=== PATIENT | female | born 1960 | race Caucasian/White ===

== ENCOUNTER 2020-03-02 05:34 | Emergency (ER) | payer MEDICARE, SELFPAY ==
[2020-03-02] VITALS (9 sets, daily range): BP systolic 92–138; BP diastolic 49–93; PULSE 80–105; RESP 15–24; TEMP 37.2; O2SAT 91–98; BMI 35.5
--- NOTE | 2020-03-02 05:53 | CTR_ITS ---
PROCEDURE INFORMATION: Exam: CT Abdomen And Pelvis With Contrast Exam date and time: 03/02/2020 6:43 AM Age: 60 years old Clinical indication: Abdominal pain; Acute; Prior surgery; Surgery date: 6+ months; Surgery type: Hyst; Additional info: Abdominal pain with n/v/d TECHNIQUE: Imaging protocol: Computed tomography of the abdomen and pelvis with intravenous contrast. Radiation optimization: All CT scans at this facility use at least one of these dose optimization techniques: automated exposure control; mA and/or kV adjustment per patient size (includes targeted exams where dose is matched to clinical indication); or iterative reconstruction. Contrast material: OMNI 300; Contrast volume: 95 ml; Contrast route: INTRAVENOUS (IV); COMPARISON: No relevant prior studies available. RADIATION DOSE METRICS: Total DLP (mGy-cm): 1368.34 FINDINGS: Lungs: No acute basilar lung consolidation. Liver: The liver is homogeneous and is not enlarged. Gallbladder and bile ducts: The gallbladder is not distended. No calcified gallstones. There is dilatation of the extrahepatic bile duct, measuring up to 13 mm in diameter. No sign of choledocholithiasis on this exam. Pancreas: No pancreatic mass. No peripancreatic inflammation. No pancreatic ductal dilation. Spleen: The spleen is homogeneous and is not enlarged. Adrenals: There is a 1.9 cm right adrenal nodule with attenuation measurements compatible with a lipid-rich adrenal adenoma. Kidneys and ureters: No hydronephrosis, nephrolithiasis, or renal mass. Stomach and bowel: No bowel obstruction, colitis or diverticulitis. Appendix: The appendix has a normal caliber with no wall thickening. No periappendiceal stranding. Intraperitoneal space: No ascites or pneumoperitoneum. Vasculature: No abdominal aortic aneurysm. No iliac or common femoral artery aneurysm. The mesenteric arteries are patent. The mesenteric, portal, and hepatic veins are patent. Lymph nodes: No pathologically enlarged lymph nodes. Bladder: The urinary better is somewhat distended. No bladder calculus or wall thickening. Reproductive: Prior hysterectomy. Bones/joints: There is a curvature lumbar spine convex to the left associated with multilevel disc degeneration and facet arthropathy. There is an exostosis off the right iliac wing. Soft tissues: There is a lipoma in the right gluteal musculature. CT/CT abdomen pelvis w con* [id number] IMPRESSION: 1. Extrahepatic biliary ductal dilatation. Correlate with the appropriate liver function tests. 2. No bowel obstruction, colitis or diverticulitis. 3. Normal appendix. Radiation Dose CTDIVOL = (mGy): DLP = 1368.34 (mGy-cm)
[2020-03-02] MEDS: ondansetron 2 mg/ML SDV 2 mL 4 MG IVP (06:08)
[2020-03-02] MEDS: HYDROmorphone 1 mg/mL INJ 1 mL IVP (06:08)
[2020-03-02] MEDS: sodium chloride 0.9% 1,000 ML 999 ML IV (06:09)
[2020-03-02 06:20] LABS: Basophils # 0.1 10^3/uL (0.0-0.1); Eosinophils # 0.6 10^3/uL (0.0-0.8); Eosinophils % 6.2 %; Hematocrit 38.5 % (37.0-47.0); Hemoglobin 12.9 g/dL (11.5-15.3); Lymphocytes # 2.4 10^3/uL (0.8-4.8); Lymphocytes % 26.4 %; Mean Corpuscular HGB Conc 33.5 g/dL (30.0-36.0); Mean Corpuscular Hemoglobin 31.1 pg (28.0-34.0); Mean Corpuscular Volume 92.8 fL (81-99); Mean Platelet Volume 8.9 fL (7.4-10.4); Monocytes # 0.8 10^3/uL (0.2-0.9); Monocytes % 8.8 %; Neutrophils # 5.1 10^3/uL (1.8-7.7); Neutrophils % 57.2 %; Nucleated Red Blood Cells % 0 %; Platelet Count 269 10^3/cmm (130-400); Red Blood Count 4.15 10^6/uL (4.1-5.3); Red Cell Distribution Width 12.8 % (12.1-15.1)
--- NOTE | 2020-03-02 06:29 | W.ED.GENADLT ---
Documented by User: Sadia Ellington 03/02/20 06:30 HPI - General Adult General: Chief complaint: General Medical Stated complaint: nausea Time Seen by Provider: 03/02/20 05:53 Source: patient and EMS Mode of arrival: EMS Limitations: no limitations History of Present Illness: HPI narrative: Elaine is a nice 60-year-old female who comes in complaining of abdominal pain, back pain, vomiting and diarrhea. Her symptoms have been present for the past 36 hours and she states that she cannot get any relief of her symptoms. It was, urinary symptoms, vaginal discharge or bleeding. She is not been around anyone else her knowledge. Associated symptoms: Reports nausea and vomiting; Deny chest pain, confusion, diaphoresis, dyspnea, headache(s), malaise, rash, palpitations or syncope Review of Systems Const: Denies: fever(s), chills, body aches, fatigue, malaise or diaphoresis Eyes: Denies: change in vision, blurry vision, blind spots, photophobia, eye discharge or eye redness ENMT: Denies: throat pain, odynophagia, hoarseness, swelling of lips/tongue, oral sores, ear or mastoid pain, ear discharge, change in hearing or nasal discharge Card: Denies: chest pain, palpitations, irregular heart rhythm, edema, lightheadedness, syncope, pre-syncope, dyspnea on exertion or orthopnea Resp: Denies: dyspnea, productive cough, non-productive cough, wheezing, hemoptysis or chest congestion GI: Reports: abdominal pain, nausea, vomiting and diarrhea; Denies: hematemesis, coffee ground emesis, heartburn, constipation, GI cramping, hematochezia or melena : Denies: flank pain, dysuria, urinary frequency, urinary urgency or hematuria Musc: Denies: neck pain, back pain, extremity pain, extremity swelling, joint pain, joint swelling, joint redness, joint warmth or joint stiffness Skin/Breast: Denies: rash, pruritus, erythema, skin tenderness or jaundice Neuro: Denies: headache(s), numbness in extremities, weakness in extremities, sensory changes, lack of coordination, difficulty walking, dizziness, vertigo, confusion, Slurred speech present or seizure-like activity [place]/Lymph: Denies: easy bruising, easy bleeding, petechiae, purpura or enlarged lymph nodes All/Imm: Denies: urticaria, throat swelling, tongue swelling, facial swelling or acute wheezing PFSH ED PFSH: Social History Smoking and tobacco status: current some day smoker Physical Exam Const: COMMON NORMALS: no acute distress, patient oriented x3, no limitations, healthy appearing and well nourished GENERAL APPEARANCE: cooperative, well kempt and well developed HENMT: COMMON NORMALS: normocephalic, atraumatic, external ears normal, EAC's normal and Normal external nose present HEAD & SCALP: normal to inspection, normocephalic and atraumatic FACE & SINUS: normal facial exam and face symmetric NOSE: Normal external nose present and Normal nares present EXTERNAL EAR: Yes external ears normal EXTERNAL AUDITORY CANAL: EAC's normal MOUTH: Normal oral and palatal mucosa present, lip normal and tongue normal Eye: COMMON NORMALS: Equal, round and reactive pupils present and conjunctivae normal GENERAL EYE: appearance normal, both eyes and all related structures ALIGNMENT: Yes alignment normal PERIORBITAL: periorbital findings normal EYELID: eyelids normal CONJUNCTIVA: Yes conjunctivae normal SCLERA: sclerae normal PUPIL: Yes Equal, round and reactive pupils present Neck/C-Spine: COMMON NORMALS: full ROM, no lymphadenopathy, supple, no meningeal signs and no JVD GENERAL: Yes normal visual inspection and Yes trachea midline Chest: COMMONS NORMALS: normal inspection of the chest and normal palpation of entire chest wall Resp: COMMON NORMALS: normal respiratory effort, No retractions and No use of accessory muscles EFFORT & INSPECTION: Yes able to speak in complete sentences and Yes symmetric chest movement AUSCULTATION: no crackles, no rales, no rhonchi and no wheezes Cardio: COMMON NORMALS: no JVD, regular rate, regular rhythm, S1 normal heart sound present and S2 normal heart sound present RATE: regular rate RHYTHM: regular rhythm HEART SOUNDS: S1 normal heart sound present, S2 normal heart sound present, no click, no gallops, no murmurs, no rubs and abnormal split S2 GI: COMMON NORMALS: Soft to palpation and No hepatosplenomegaly present PALPATION: Yes Soft to palpation, Yes Tenderness to palpation present (GI) (Mild diffusely), No Guarding due to palpation present (GI), No Rigid due to palpation, Yes No hepatosplenomegaly present, No Hernia present, No Palpable mass present and No Pulsatile mass present : COMMON NORMALS: Yes no CVA tenderness BLADDER/KIDNEY EXAM: Yes no CVA tenderness EXTERNAL FEMALE EXAM: No Hernia present Back/Pelvis: COMMON NORMALS: no CVA tenderness, thoracic and lumbar spine normal to inspection, no thoracic nor lumbar tenderness and thoraco-lumbar ROM normal Extremity: COMMON NORMALS: normal to inspection, full ROM, capillary refill normal, no joint enlargement, no clubbing, cyanosis or edema and no calf tenderness Neuro: COMMON NORMALS: patient oriented x3, CN's II-XII intact bilaterally, moves all extremities, no focal motor deficits and no sensory deficits noted MENINGEAL SIGNS: Yes no meningeal signs SPEECH: speech normal Psych: COMMON NORMALS: mental status grossly normal, Normal thought process present, cooperative, normal affect, speech normal and activity/motor behavior normal APPEARANCE: Yes well kempt SPEECH: Yes normal speech THOUGHT PROCESS: Normal thought process present Skin: COMMON NORMALS: no rashes or lesions noted, turgor normal, no jaundice, no petechiae and no mottling GENERAL SKIN EXAM: no rashes or lesions noted and turgor normal Course Vital Signs: Vital signs: Vital Signs Temperature 99.0 F 03/02/20 05:43 Pulse Rate 85 03/02/20 12:30 Respiratory Rate 16 03/02/20 12:30 Blood Pressure 138/93 03/02/20 12:30 Pulse Oximetry 97 03/02/20 12:30 [facility] - General Adult Lab Data: Labs: Lab Results 03/02/20 03/02/20 03/02/20 Range/Units 06:05 06:05 06:05 WBC 9.0 (4.0-10.0) 10^3/ uL RBC 4.15 (4.1-5.3) 10^6/u L Hgb 12.9 (11.5-15.3) g/dL Hct 38.5 (37.0-47.0) % MCV 92.8 (81-99) fL MCH 31.1 (28.0-34.0) pg MCHC 33.5 (30.0-36.0) g/dL RDW 12.8 (12.1-15.1) % Plt Count 269 (130-400) 10^3/c mm MPV 8.9 (7.4-10.4) fL Neut % (Auto) 57.2 % Lymph % (Auto) 26.4 % [place] % (Auto) 8.8 % Eos % (Auto) 6.2 % Baso % (Auto) 1.0 % Neut # (Auto) 5.1 (1.8-7.7) 10^3/u L Lymph # (Auto) 2.4 (0.8-4.8) 10^3/u L [place] # (Auto) 0.8 (0.2-0.9) 10^3/u L Eos # (Auto) 0.6 (0.0-0.8) 10^3/u L Baso # (Auto) 0.1 (0.0-0.1) 10^3/u L Nucleated RBC % (a uto) 0 % Nucleated RBCs # 0.0 /100WBC Sodium 128 L (136-145) mmol/L Potassium 4.7 (3.5-5.1) mmol/L Chloride 93 L (98-107) mmol/L Carbon Dioxide 26 (22-29) mmol/L Anion Gap 13.7 (5-19) BUN 10 (8-23) mg/dL Creatinine 0.4 L (0.5-0.9) mg/dL GFR Calculation 162.3 H (90-130) mL/min Glucose 97 (65-115) mg/dL Calculated Osmolal ity 262 L (285-295) mOsm/k g Lactic Acid 1.7 (0.5-2.2) mmol/L Calcium 9.2 (8.5-10.5) mg/dL Magnesium 2.1 (1.7-2.3) mg/dL Total Bilirubin 0.2 (0.15-1.2) mg/dL AST 22 (0-32) U/L ALT 23 (0-33) U/L Alkaline Phosphata se 109 H (35-105) IU/L Total Protein 6.6 (6.6-8.7) g/dL Albumin 4.2 (3.5-5.2) g/dL Globulin 2.4 (1.3-4.6) g/dL Lipase 32 (13-60) U/L Urine Color (Yellow) Urine Appearance (CLEAR) Urine pH (5-7) Ur Specific Gravit y (1.005-1.030) Urine Protein (Negative) Urine Glucose (UA) (Normal) Urine Ketones (Negative) Urine Blood (Negative) Urine Nitrate (Negative) Urine Bilirubin (NEGATIVE) Urine Urobilinogen (Negative) mg/dL Ur Leukocyte Kenzie ase (Negative) Urine RBC (0-2) /hpf Urine WBC (0-5) /hpf Ur Squamous Epith Cells (0-5) Urine Bacteria (NONE) Phenytoin (10-20) ug/mL 03/02/20 03/02/20 Range/Units 06:05 08:03 WBC (4.0-10.0) 10^3/ uL RBC (4.1-5.3) 10^6/u L Hgb (11.5-15.3) g/dL Hct (37.0-47.0) % MCV (81-99) fL MCH (28.0-34.0) pg MCHC (30.0-36.0) g/dL RDW (12.1-15.1) % Plt Count (130-400) 10^3/c mm MPV (7.4-10.4) fL Neut % (Auto) % Lymph % (Auto) % [place] % (Auto) % Eos % (Auto) % Baso % (Auto) % Neut # (Auto) (1.8-7.7) 10^3/u L Lymph # (Auto) (0.8-4.8) 10^3/u L [place] # (Auto) (0.2-0.9) 10^3/u L Eos # (Auto) (0.0-0.8) 10^3/u L Baso # (Auto) (0.0-0.1) 10^3/u L Nucleated RBC % (a uto) % Nucleated RBCs # /100WBC Sodium (136-145) mmol/L Potassium (3.5-5.1) mmol/L Chloride (98-107) mmol/L Carbon Dioxide (22-29) mmol/L Anion Gap (5-19) BUN (8-23) mg/dL Creatinine (0.5-0.9) mg/dL GFR Calculation (90-130) mL/min Glucose (65-115) mg/dL Calculated Osmolal ity (285-295) mOsm/k g Lactic Acid (0.5-2.2) mmol/L Calcium (8.5-10.5) mg/dL Magnesium (1.7-2.3) mg/dL Total Bilirubin (0.15-1.2) mg/dL AST (0-32) U/L ALT (0-33) U/L Alkaline Phosphata se (35-105) IU/L Total Protein (6.6-8.7) g/dL Albumin (3.5-5.2) g/dL Globulin (1.3-4.6) g/dL Lipase (13-60) U/L Urine Color Yellow (Yellow) Urine Appearance Clear (CLEAR) Urine pH 7 (5-7) Ur Specific Gravit y 1.005 (1.005-1.030) Urine Protein Neg (Negative) Urine Glucose (UA) Norm (Normal) Urine Ketones Negative (Negative) Urine Blood Neg (Negative) Urine Nitrate Negative (Negative) Urine Bilirubin Neg (NEGATIVE) Urine Urobilinogen Norm (Negative) mg/dL Ur Leukocyte Kenzie ase Negative (Negative) Urine RBC None (0-2) /hpf Urine WBC None (0-5) /hpf Ur Squamous Epith Cells 0-4 H (0-5) Urine Bacteria Trace (NONE) Phenytoin 2.9 L (10-20) ug/mL Discharge Plan Discharge Patient Disposition: Home, Self-Care Clinical Impression: Nausea & vomiting Condition: Stable Prescriptions: New Zofran 4 mg tablet 4 mg PO Q6H PRN (Reason: nausea and vomiting) Qty: 30 RF: 0 No Action furosemide 40 mg tablet 20 - 40 mg PO DAILY PRN (Reason: Edema) RF: 0 oxybutynin chloride 15 mg tablet extended release 24hr 15 mg PO DAILY RF: 0 clonazepam 1 mg tablet 0.5 - 1 mg PO TID PRN (Reason: unknown) RF: 0 olanzapine 10 mg tablet 10 mg PO QPM RF: 0 potassium chloride 10 mEq tablet extended release 10 meq PO DAILY RF: 0 phenytoin sodium extended 100 mg capsule 100 mg PO TID RF: 0 divalproex 500 mg tablet,delayed release (DR/EC) See Rx Instructions .ROUTE .COMPLEX RF: 0 hydrocodone-acetaminophen 10-325 mg tablet 1 - 2 tab PO Q4H PRN (Reason: Pain) RF: 0 trazodone 100 mg tablet 100 - 200 mg PO BEDTIME PRN (Reason: Sleep) RF: 0 mirtazapine 30 mg tablet 30 mg PO QPM RF: 0 venlafaxine 50 mg tablet 50 mg PO BID RF: 0 olmesartan 40 mg tablet 40 mg PO DAILY RF: 0 Thermotabs 287-180-15 mg Tablet 1 tab PO TID RF: 0 Vitamin C 1 tab PO DAILY RF: 0 Vitamin D3 1 tab PO DAILY RF: 0 vitamin E 1 cap PO DAILY RF: 0 Discharge Orders: Discharge Order (Routine); Ordered 03/02/20 Ordered By: Xu Pablo Discharge Diet: Clear Liquid Discharge Activity: Increase activity as tolerated Patient Instructions: Clear Liquid Diet (ED), Acute Nausea and Vomiting (ED), Abdominal Pain (ED) Activity Restrictions/Additional Instructions: Resume your normal p.o. medications. Follow-up with primary care doctor in 2 to 3 days return to the emergency room for worsening problems Discharge Date/Time: 03/02/20 12:30 Sign Out Sign Out Data: Patient Sign Out occurred on 03/02/20 at 07:29. Patient's care was discussed, and care was transferred from to Xu Pablo DO. Coding Level of Care Code ED Endocrinology Nurse for Chg Fwd Exam Comprehensive Documented by User: Xu Pablo DO 03/05/20 06:29 HPI - General Adult General: Chief complaint: General Medical Stated complaint: nausea Time Seen by Provider: 03/02/20 05:53 History of Present Illness: HPI narrative: 60-year-old female who went and examined the patient she self admits she has mental health issues she is upset because we have given not all of her regular oral medications this morning she still complaining of severe abdominal pain she is not had any nausea vomiting since arrival. Associated symptoms: Reports nausea and vomiting; Deny chest pain, dyspnea or rash Review of Systems Card: Denies: chest pain, edema, dyspnea on exertion or orthopnea Resp: Denies: dyspnea, productive cough or non-productive cough GI: Reports: abdominal pain, nausea, vomiting and bloating; Denies: hematemesis, coffee ground emesis, diarrhea, constipation, hematochezia or melena : Denies: flank pain, difficulty voiding, dysuria, urinary frequency or urinary urgency Skin/Breast: Denies: rash or pruritus PFSH ED PFSH: Social History Smoking and tobacco status: current some day smoker Physical Exam Const: ORIENTATION/CONSCIOUSNESS: Yes awake, Yes oriented to person, Yes oriented to place and Yes oriented to time Eye: COMMON NORMALS: Equal, round and reactive pupils present, EOMs intact bilaterally, conjunctivae normal and no scleral icterus CONJUNCTIVA: Yes conjunctivae normal PUPIL: Yes Equal, round and reactive pupils present Neck/C-Spine: COMMON NORMALS: full ROM, no lymphadenopathy, supple and no JVD Lymph: LYMPHATIC: no lymphadenopathy noted and no lymphedema noted Resp: COMMON NORMALS: normal respiratory effort, No retractions, No use of accessory muscles and clear to auscultation bilaterally AUSCULTATION: clear to auscultation bilaterally Cardio: COMMON NORMALS: no JVD, regular rate, regular rhythm and No murmurs present (Cardio) RATE: regular rate RHYTHM: regular rhythm GI: COMMON NORMALS: No hepatosplenomegaly present AUSCULTATION: Yes normoactive bowel sounds PALPATION: Yes Tenderness to palpation present (GI) (diffuse tenderness), No Guarding due to palpation present (GI) and Yes No hepatosplenomegaly present Extremity: COMMON NORMALS: normal to inspection, capillary refill normal, no clubbing, cyanosis or edema, no calf tenderness and no pedal edema Neuro: SENSORIUM/ORIENTATION: Yes oriented to person, Yes oriented to place and Yes oriented to time Skin: COMMON NORMALS: no rashes or lesions noted GENERAL SKIN EXAM: no rashes or lesions noted Course Vital Signs: Vital signs: Vital Signs Temperature 99.0 F 03/02/20 05:43 Pulse Rate 85 03/02/20 12:30 Respiratory Rate 16 03/02/20 12:30 Blood Pressure 138/93 03/02/20 12:30 Pulse Oximetry 97 03/02/20 12:30 MDM - General Adult MDM Narrative: Medical decision making narrative: My initial exam patient continued with severe tenderness we observed over time give her p.o. fluid challenge through IV fluids on repeat exam she is feeling much better she initially upset because we had not given her her oral medications I discussed with her that I wanted to hold them until we are done with our work-up. At this time is no significant findings she has a gastroenteritis with persistent nausea and vomiting her symptoms have mostly resolved she is feeling better and able to take p.o. fluids working to go ahead and discharge her home with [facility] advised her she can resume her regular home medications at this time after discussion with the nurse present patient was satisfied with our evaluation and comfortable returning home. She was encouraged to return if she has any worsening or recurrence of symptoms. Lab Data: Labs: Lab Results 03/02/20 03/02/20 03/02/20 Range/Units 06:05 06:05 06:05 WBC 9.0 (4.0-10.0) 10^3/ uL RBC 4.15 (4.1-5.3) 10^6/u L Hgb 12.9 (11.5-15.3) g/dL Hct 38.5 (37.0-47.0) % MCV 92.8 (81-99) fL MCH 31.1 (28.0-34.0) pg MCHC 33.5 (30.0-36.0) g/dL RDW 12.8 (12.1-15.1) % Plt Count 269 (130-400) 10^3/c mm MPV 8.9 (7.4-10.4) fL Neut % (Auto) 57.2 % Lymph % (Auto) 26.4 % [place] % (Auto) 8.8 % Eos % (Auto) 6.2 % Baso % (Auto) 1.0 % Neut # (Auto) 5.1 (1.8-7.7) 10^3/u L Lymph # (Auto) 2.4 (0.8-4.8) 10^3/u L [place] # (Auto) 0.8 (0.2-0.9) 10^3/u L Eos # (Auto) 0.6 (0.0-0.8) 10^3/u L Baso # (Auto) 0.1 (0.0-0.1) 10^3/u L Nucleated RBC % (a uto) 0 % Nucleated RBCs # 0.0 /100WBC Sodium 128 L (136-145) mmol/L Potassium 4.7 (3.5-5.1) mmol/L Chloride 93 L (98-107) mmol/L Carbon Dioxide 26 (22-29) mmol/L Anion Gap 13.7 (5-19) BUN 10 (8-23) mg/dL Creatinine 0.4 L (0.5-0.9) mg/dL GFR Calculation 162.3 H (90-130) mL/min Glucose 97 (65-115) mg/dL Calculated Osmolal ity 262 L (285-295) mOsm/k g Lactic Acid 1.7 (0.5-2.2) mmol/L Calcium 9.2 (8.5-10.5) mg/dL Magnesium 2.1 (1.7-2.3) mg/dL Total Bilirubin 0.2 (0.15-1.2) mg/dL AST 22 (0-32) U/L ALT 23 (0-33) U/L Alkaline Phosphata se 109 H (35-105) IU/L Total Protein 6.6 (6.6-8.7) g/dL Albumin 4.2 (3.5-5.2) g/dL Globulin 2.4 (1.3-4.6) g/dL Lipase 32 (13-60) U/L Urine Color (Yellow) Urine Appearance (CLEAR) Urine pH (5-7) Ur Specific Gravit y (1.005-1.030) Urine Protein (Negative) Urine Glucose (UA) (Normal) Urine Ketones (Negative) Urine Blood (Negative) Urine Nitrate (Negative) Urine Bilirubin (NEGATIVE) Urine Urobilinogen (Negative) mg/dL Ur Leukocyte Kenzie ase (Negative) Urine RBC (0-2) /hpf Urine WBC (0-5) /hpf Ur Squamous Epith Cells (0-5) Urine Bacteria (NONE) Phenytoin (10-20) ug/mL 03/02/20 03/02/20 Range/Units 06:05 08:03 WBC (4.0-10.0) 10^3/ uL RBC (4.1-5.3) 10^6/u L Hgb (11.5-15.3) g/dL Hct (37.0-47.0) % MCV (81-99) fL MCH (28.0-34.0) pg MCHC (30.0-36.0) g/dL RDW (12.1-15.1) % Plt Count (130-400) 10^3/c mm MPV (7.4-10.4) fL Neut % (Auto) % Lymph % (Auto) % [place] % (Auto) % Eos % (Auto) % Baso % (Auto) % Neut # (Auto) (1.8-7.7) 10^3/u L Lymph # (Auto) (0.8-4.8) 10^3/u L [place] # (Auto) (0.2-0.9) 10^3/u L Eos # (Auto) (0.0-0.8) 10^3/u L Baso # (Auto) (0.0-0.1) 10^3/u L Nucleated RBC % (a uto) % Nucleated RBCs # /100WBC Sodium (136-145) mmol/L Potassium (3.5-5.1) mmol/L Chloride (98-107) mmol/L Carbon Dioxide (22-29) mmol/L Anion Gap (5-19) BUN (8-23) mg/dL Creatinine (0.5-0.9) mg/dL GFR Calculation (90-130) mL/min Glucose (65-115) mg/dL Calculated Osmolal ity (285-295) mOsm/k g Lactic Acid (0.5-2.2) mmol/L Calcium (8.5-10.5) mg/dL Magnesium (1.7-2.3) mg/dL Total Bilirubin (0.15-1.2) mg/dL AST (0-32) U/L ALT (0-33) U/L Alkaline Phosphata se (35-105) IU/L Total Protein (6.6-8.7) g/dL Albumin (3.5-5.2) g/dL Globulin (1.3-4.6) g/dL Lipase (13-60) U/L Urine Color Yellow (Yellow) Urine Appearance Clear (CLEAR) Urine pH 7 (5-7) Ur Specific Gravit y 1.005 (1.005-1.030) Urine Protein Neg (Negative) Urine Glucose (UA) Norm (Normal) Urine Ketones Negative (Negative) Urine Blood Neg (Negative) Urine Nitrate Negative (Negative) Urine Bilirubin Neg (NEGATIVE) Urine Urobilinogen Norm (Negative) mg/dL Ur Leukocyte Kenzie ase Negative (Negative) Urine RBC None (0-2) /hpf Urine WBC None (0-5) /hpf Ur Squamous Epith Cells 0-4 H (0-5) Urine Bacteria Trace (NONE) Phenytoin 2.9 L (10-20) ug/mL Discharge Plan Discharge Patient Disposition: Home, Self-Care Clinical Impression: Nausea & vomiting Condition: Stable Prescriptions: New Zofran 4 mg tablet 4 mg PO Q6H PRN (Reason: nausea and vomiting) Qty: 30 RF: 0 No Action furosemide 40 mg tablet 20 - 40 mg PO DAILY PRN (Reason: Edema) RF: 0 oxybutynin chloride 15 mg tablet extended release 24hr 15 mg PO DAILY RF: 0 clonazepam 1 mg tablet 0.5 - 1 mg PO TID PRN (Reason: unknown) RF: 0 olanzapine 10 mg tablet 10 mg PO QPM RF: 0 potassium chloride 10 mEq tablet extended release 10 meq PO DAILY RF: 0 phenytoin sodium extended 100 mg capsule 100 mg PO TID RF: 0 divalproex 500 mg tablet,delayed release (DR/EC) See Rx Instructions .ROUTE .COMPLEX RF: 0 hydrocodone-acetaminophen 10-325 mg tablet 1 - 2 tab PO Q4H PRN (Reason: Pain) RF: 0 trazodone 100 mg tablet 100 - 200 mg PO BEDTIME PRN (Reason: Sleep) RF: 0 mirtazapine 30 mg tablet 30 mg PO QPM RF: 0 venlafaxine 50 mg tablet 50 mg PO BID RF: 0 olmesartan 40 mg tablet 40 mg PO DAILY RF: 0 Thermotabs 287-180-15 mg Tablet 1 tab PO TID RF: 0 Vitamin C 1 tab PO DAILY RF: 0 Vitamin D3 1 tab PO DAILY RF: 0 vitamin E 1 cap PO DAILY RF: 0 Discharge Orders: Discharge Order (Routine); Ordered 03/02/20 Ordered By: Xu Pablo Discharge Diet: Clear Liquid Discharge Activity: Increase activity as tolerated Patient Instructions: Clear Liquid Diet (ED), Acute Nausea and Vomiting (ED), Abdominal Pain (ED) Activity Restrictions/Additional Instructions: Resume your normal p.o. medications. Follow-up with primary care doctor in 2 to 3 days return to the emergency room for worsening problems Discharge Date/Time: 03/02/20 12:30 Sign Out Sign Out Data: Patient Sign Out occurred on 03/02/20 at 07:29. Patient's care was discussed, and care was transferred from to Xu Pablo DO. Coding Level of Care Code ED Endocrinology Nurse for Chg Fwd Exam Comprehensive
[2020-03-02 06:34] LABS: Alanine Aminotransferase 23 U/L (0-33); Albumin Level 4.2 g/dL (3.5-5.2); Alkaline Phosphatase 109 IU/L (35-105); Anion Gap 13.7 (5-19); Aspartate Amino Transferase 22 U/L (0-32); Blood Urea Nitrogen 10 mg/dL (8-23); Calcium 9.2 mg/dL (8.5-10.5); Carbon Dioxide 26 mmol/L (22-29); Chloride 93 mmol/L (98-107); Globulin 2.4 g/dL (1.3-4.6); Glomerular Filtration Rate 162.3 mL/min (90-130); Glucose 97 mg/dL (65-115); Lipase 32 U/L (13-60); Magnesium 2.1 mg/dL (1.7-2.3); Osmolality Calculated 262 mOsm/kg (285-295); Potassium 4.7 mmol/L (3.5-5.1); Sodium 128 mmol/L (136-145); Total Bilirubin 0.2 mg/dL (0.15-1.2); Total Protein 6.6 g/dL (6.6-8.7)
[2020-03-02 06:35] LABS: Lactic Sepsis W/Reflex 1.7 mmol/L (0.5-2.2)
[2020-03-02] MEDS: iohexol 300 mg/mL 100 mL Btl IV (07:06)
[2020-03-02 08:43] LABS: Add Urine Culture? No; Bacteria Urine TRACE; Bilirubin Urine Neg (NEGATIVE); Blood Urine Neg (Negative); Glucose Urine UA Norm (Normal); Ketones Urine Negative (Negative); Leukocyte Esterase Urine Negative (Negative); Nitrate Urine Negative (Negative); Protein Urine Neg (Negative); Specific Gravity, Urine 1.005 (1.005-1.030); Squamous Epithelial Cell Urine 0-4 (0-5); Urine Appearance Clear (CLEAR); Urine Color Yellow (Yellow); Urobilinogen Urine Norm (Negative); pH Urine 7 (5-7)
[2020-03-02] MEDS: morphine 4 mg/mL SDV 1 mL IVP (10:05)
[2020-03-02] MEDS: LORazepam 2 mg/mL INJ 1 mL 1 MG IVP (10:21)
[2020-03-02 10:54] LABS: Phenytoin Dilantin 2.9 ug/mL (10-20)
== END 2020-03-02 12:30 | disposition home or self-care (01) ==
PROVIDERS: Emergency Medicine; Emergency Provider Family Medicine
DX: R11.2 Nausea with vomiting, unspecified (principal); F17.210 Nicotine dependence, cigarettes, uncomplicated
CPT/HCPCS: 12345; 74177; 80053; 80185; 81001; 83605; 83690; 83735; 85025; 96361; 96374; 96375; 99284; J1170; J2060; J2270; J2405; J7030; Q9967

== ENCOUNTER 2020-10-11 14:34 | Outpatient (CLI) | payer MEDICARE, SELFPAY ==
--- NOTE | 2020-10-11 14:47 | XR_ITS ---
WS: [id number] Exam: XR chest 2V* [id number] Date/Time of Exam: 10/11/2020 2:47 PM Reason For Exam: copd Comparison 07/30/2018. The lungs are fully expanded and clear. Normal cardiomediastinal structures and bony elements. No ple ural effusions. XR/XR chest 2V* [id number] IMPRESSION: 1. No acute cardiopulmonary finding.
--- NOTE | 2020-10-11 14:48 | XR_ITS ---
WS: [id number] Exam: XR knee RT 3V* [id number] Date/Time of Exam: 10/11/2020 2:48 PM Reason For Exam: KNEE PAIN Comparison 11/18/2018. A total knee prosthesis is in place in satisfactory position. No fracture or loosening. The patellar component is incompletely visualized due to radiographic projection. No joint effusion is noted. Norm al soft tissues. XR/XR knee RT 3V* [id number] IMPRESSION: 1. Total knee replacement remaining in satisfactory position without complicati on. 2. The patellar component is partially obscured for evaluation due to radiograp hic projection. A sunrise view or repeat lateral view could be helpful if thoug ht to be clinically warranted.
--- NOTE | 2020-10-11 14:48 | XR_ITS ---
WS: [id number] Exam: XR hip LT 2-3V wo/w pel* [id number] Date/Time of Exam: 10/11/2020 2:48 PM Reason For Exam: HIP PAIN No fracture or dislocation. Moderate degenerative change of the joint compartment. Normal soft tissue s. XR/XR hip LT 2-3V wo/w pel* [id number] IMPRESSION: 1. No fracture identified. 2. Moderate degenerative change. 3. Marginal osteophyte formation along the lateral margin of the acetabulum. Th is might predispose the patient to femoral acetabular impingement however this should be correlated with clinical symptoms.
== END 2020-10-11 14:35 | disposition home or self-care (01) ==
LOC: RAD 14:45
PROVIDERS: PCP Nurse Practitioner Family; Visit Provider Nurse Practitioner Family
DX: M25.552 Pain in left hip (principal); M25.561 Pain in right knee; J44.9 Chronic obstructive pulmonary disease, unspecified; Z96.651 Presence of right artificial knee joint
CPT/HCPCS: 71046; 73502; 73562

== ENCOUNTER 2020-11-06 15:35 | Emergency (ER) | payer MEDICARE, SELFPAY ==
[2020-11-06 15:42] VITALS: BP 155/91; PULSE 109; RESP 24; TEMP 37.7; O2SAT 99; BMI 35.5
--- NOTE | 2020-11-06 16:29 | CTR_ITS ---
PROCEDURE INFORMATION: Exam: CT Lumbar Spine Without Contrast Exam date and time: 11/06/2020 4:37 PM Age: 60 years old Clinical indication: Injury or trauma; Blunt trauma (contusions or hematomas); Patient HX: Fall, low back pain TECHNIQUE: Imaging protocol: Computed tomography images of the lumbar spine without contrast. Radiation optimization: All CT scans at this facility use at least one of these dose optimization techniques: automated exposure control; mA and/or kV adjustment per patient size (includes targeted exams where dose is matched to clinical indication); or iterative reconstruction. COMPARISON: No relevant prior studies available. RADIATION DOSE METRICS: Total DLP (mGy-cm): 2432.55 FINDINGS: Vertebrae: Moderate to severe levoscoliosis. The normal lordosis is generally maintained. No compression deformity or subluxation. No other fracture. Discs/Spinal canal/Neural foramina: Disc bulges noted, greatest at the L3-L4 level, measuring 5 mm. Xaec-de-[id number] facet arthrosis. Geac-lv-kkhcpqjp foraminal stenosis at L2-L3 and below. No severe canal stenosis. Soft tissues: A 1.4 cm right adrenal nodule measures -17 Hounsfield units in density consistent with a benign lipid rich adrenal adenoma. A 1.6 cm left adrenal nodule measures 18 Hounsfield units, consistent with a benign lipid rich adrenal adenoma. CT/CT lumbar spine wo con* [id number] IMPRESSION: No acute osseous abnormality of the lumbar spine. Radiation Dose CTDIVOL = (mGy): DLP = 2432.55 (mGy-cm)
--- NOTE | 2020-11-06 16:29 | CTR_ITS ---
PROCEDURE INFORMATION: Exam: CT Pelvis Without Contrast; Skeletal Exam date and time: 11/06/2020 4:37 PM Age: 60 years old Clinical indication: Injury or trauma; Blunt trauma (contusions or hematomas); Left; Patient HX: Fall-low back pain, lt hip pain; Additional info: Pain after fall TECHNIQUE: Imaging protocol: Computed tomography images of the pelvis without contrast. Exam focused on the skeletal structures. Radiation optimization: All CT scans at this facility use at least one of these dose optimization techniques: automated exposure control; mA and/or kV adjustment per patient size (includes targeted exams where dose is matched to clinical indication); or iterative reconstruction. COMPARISON: CT abdomen pelvis w con* [id number] 03/02/2020 6:49 AM RADIATION DOSE METRICS: Total DLP (mGy-cm): 978.51 FINDINGS: Stomach and bowel: Few scattered diverticula in the visualized colon. Bones/joints: Exostosis again noted of the right iliac wing . No acute osseous abnormality. Ktho-bb-[id number] degenerative changes of the hips. Soft tissues: Lipoma in the right gluteus musculature. CT/CT pelvis wo con [id number] IMPRESSION: No acute osseous abnormality of the pelvis. Radiation Dose CTDIVOL = (mGy): DLP = 978.51 (mGy-cm)
--- NOTE | 2020-11-06 16:33 | ED_ITS ---
HPI - Back Pain/Injury General: Chief Complaint: Back Pain/Injury Stated Complaint: HIP AND BACK PAIN Time Seen by Provider: 11/06/20 15:56 History of Present Illness: HPI Narrative: 60-year-old female comes in complaining of severe left sided back pain radiating into her upper thigh and groin. It does not go down to her leg. About 3 weeks ago she fell she was seen after that had plain films done of the hip and pelvis and lumbar spine there is no acute finding. She was seen today at pain clinic was in severe pain sent over to the Ortho clinic they referred her to the ER because she was in pain and they were not able even really properly examine her. She denies any fecal incontinence or any urinary retention. She has been taking hydrocodone. She denies any other trauma since the fall in late September. MD elicited complaint: back pain and back injury Pertinent past history: recent trauma (3 weeks ago.) Onset (ago): day(s) Timing: constant Severity: severe Similar Symptoms Previously: Yes Quality: spasming Radiation: groin Exacerbating factors: none Relieving factors: none Context: fall Associated symptoms: Deny abdominal pain, arthralgias, chills, change in bowel habits, difficulty walking, dysuria, fatigue, fecal incontinence, fever(s), hematuria, myalgias, nausea, numbness, syncope, tingling/numbness/burning, urinary frequency, urinary urgency, vomiting or weakness Review of Systems Const: Denies: fever(s), chills or fatigue ENMT: Denies: throat pain, ear or mastoid pain, nasal discharge or nasal congestion Card: Denies: syncope Resp: Denies: dyspnea, productive cough or non-productive cough GI: Denies: abdominal pain, nausea, vomiting, fecal incontinence or change in bowel habits : Denies: dysuria, urinary urgency or hematuria Skin/Breast: Denies: rash or pruritus Neuro: Denies: difficulty walking PFSH ED PFSH: Social History Smoking and tobacco status: current some day smoker Physical Exam Const: COMMON NORMALS: no acute distress GENERAL APPEARANCE: cooperative and comfortable ORIENTATION/CONSCIOUSNESS: Yes awake, Yes oriented to person, Yes oriented to place and Yes oriented to time HENMT: COMMON NORMALS: normocephalic, atraumatic and hearing grossly normal bilaterally HEAD & SCALP: normocephalic and atraumatic Neck/C-Spine: COMMON NORMALS: no JVD Resp: COMMON NORMALS: normal respiratory effort, No retractions, No use of accessory muscles and clear to auscultation bilaterally AUSCULTATION: clear to auscultation bilaterally Cardio: COMMON NORMALS: no JVD, regular rate, regular rhythm and No murmurs present (Cardio) RATE: regular rate RHYTHM: regular rhythm GI: COMMON NORMALS: Soft to palpation and No hepatosplenomegaly present AUSCULTATION: Yes normoactive bowel sounds PALPATION: Yes Soft to palpation, No Tenderness to palpation present (GI), No Guarding due to palpation present (GI) and Yes No hepatosplenomegaly present Extremity: COMMON NORMALS: normal to inspection, capillary refill normal, no clubbing, cyanosis or edema, no calf tenderness and no pedal edema Neuro: SENSORIUM/ORIENTATION: Yes oriented to person, Yes oriented to place and Yes oriented to time Skin: COMMON NORMALS: no rashes or lesions noted GENERAL SKIN EXAM: no rashes or lesions noted Course Vital Signs: Vital signs: Vital Signs Temperature 99.9 F H 11/06/20 15:42 Pulse Rate 77 11/06/20 18:05 Respiratory Rate 18 11/06/20 18:05 Blood Pressure 139/94 11/06/20 18:05 Pulse Oximetry 96 11/06/20 18:05 MDM - Back Pain/Injury MDM Narrative: Medical decision making narrative: CT is negative for occult fracture. No evidence of stenosis or significant foraminal impingement. Go[place] discharge home she is doing much better with the pain medications given here d ischarge home and as per medicines below have her follow-up with primary care may need more advanced imaging such as MRI of the lumbar spine. Lab Data: Labs: Lab Results 11/06/20 11/06/20 11/06/20 Range/Units 16:27 16:27 17:45 WBC 6.7 (4.0-10.0) 10^3/ uL RBC 3.95 L (4.1-5.3) 10^6/u L Hgb 12.1 (11.5-15.3) g/dL Hct 35.4 L (37.0-47.0) % MCV 89.6 (81-99) fL MCH 30.6 (28.0-34.0) pg MCHC 34.2 (30.0-36.0) g/dL RDW 12.5 (12.1-15.1) % Plt Count 239 (130-400) 10^3/c mm MPV 9.6 (7.4-10.4) fL Neut % (Auto) 44.6 % Lymph % (Auto) 32.9 % Appling % (Auto) 14.0 % Eos % (Auto) 7.1 % Baso % (Auto) 1.1 % Neut # (Auto) 2.98 (1.8-7.7) 10^3/u L Lymph # (Auto) 2.2 (0.8-4.8) 10^3/u L Appling # (Auto) 0.9 (0.2-0.9) 10^3/u L Eos # (Auto) 0.5 (0.0-0.8) 10^3/u L Baso # (Auto) 0.1 (0.0-0.1) 10^3/u L Nucleated RBC % (a uto) 0 % Nucleated RBCs # 0.0 /100WBC Sodium 129 L (136-145) mmol/L Potassium 4.7 (3.5-5.1) mmol/L Chloride 94 L (98-107) mmol/L Carbon Dioxide 25 (22-29) mmol/L Anion Gap 14.7 (5-19) BUN 6 L (8-23) mg/dL Creatinine 0.4 L (0.5-0.9) mg/dL GFR Calculation 162.3 H (90-130) mL/min Glucose 95 (65-115) mg/dL Calculated Osmolal ity 265 L (285-295) mOsm/k g Calcium 9.4 (8.5-10.5) mg/dL Urine Color Yellow (Yellow) Urine Appearance Sl hazy (CLEAR) Urine pH 7 (5-7) Ur Specific Gravit y 1.005 (1.005-1.030) Urine Protein Neg (Negative) Urine Glucose (UA) Norm (Normal) Urine Ketones Negative (Negative) Urine Blood 2+ H (Negative) Urine Nitrate Positive H (Negative) Urine Bilirubin Neg (Negative) Urine Urobilinogen Norm (Negative) mg/dL Ur Leukocyte Kenzie ase 2+ H (Negative) Urine RBC 0-4 H (0-2) /hpf Urine WBC >100 H (0-5) /hpf Ur Squamous Epith Cells 0-4 H (0-5) /hpf Amorphous Sediment Not Reportable Urine Bacteria 3+ H (NONE) /hpf Discharge Plan Discharge Patient Disposition: Home Clinical Impression: Lumbar radiculopathy, Strain of lumbar region Condition: Stable Prescriptions: New diclofenac sodium 75 mg tablet,delayed release (DR/EC) 75 mg PO Q12H PRN (Reason: pain) Qty: 20 RF: 0 tizanidine 4 mg capsule 4 mg PO Q6H PRN (Reason: muscle spasticity) Qty: 30 RF: 0 Medrol (Cuong) 4 mg tablets,dose pack See Rx Instructions .ROUTE .COMPLEX Qty: 21 RF: 0 No Action divalproex 500 mg tablet extended release 24 hr 500 mg PO QAM RF: 0 Afrin (oxymetazoline) See Rx Instructions .ROUTE .COMPLEX RF: 0 Zyrtec 10 mg Tablet 10 mg PO DAILY RF: 0 levothyroxine 25 mcg Tablet See Rx Instructions .ROUTE .COMPLEX RF: 0 Stool Softener 100 mg Capsule 100 mg PO DAILY PRN (Reason: Constipation) RF: 0 oxybutynin chloride 15 mg tablet extended release 24hr 15 mg PO QAM RF: 0 clonazepam 1 mg tablet See Rx Instructions .ROUTE .COMPLEX PRN (Reason: unknown) RF: 0 olanzapine 10 mg tablet 10 mg PO QPM RF: 0 potassium chloride 10 mEq tablet extended release 10 meq PO QAM RF: 0 phenytoin sodium extended 100 mg capsule 100 mg PO TID RF: 0 divalproex 500 mg tablet,delayed release (DR/EC) 1,000 mg PO QPM RF: 0 hydrocodone-acetaminophen 10-325 mg tablet 1 - 2 tab PO Q4H MDD 6 tabs per day PRN (Reason: Pain) RF: 0 trazodone 100 mg tablet 100 - 200 mg PO BEDTIME PRN (Reason: Sleep) RF: 0 mirtazapine 30 mg tablet 30 mg PO QPM RF: 0 venlafaxine 50 mg tablet 50 mg PO BID RF: 0 olmesartan 40 mg tablet 40 mg PO QAM RF: 0 Thermotabs 287-180-15 mg Tablet 1 tab PO BID RF: 0 Vitamin C 1 tab PO DAILY@12 RF: 0 Vitamin D3 1 tab PO DAILY@12 RF: 0 vitamin E 1 cap PO DAILY@12 RF: 0 Discharge Orders: Discharge ED (Routine); Ordered 11/06/20 Ordered By: Xu Pablo Referrals: Lila Lechuga APN [Primary Care Provider] - Discharge Diet: Usual diet Discharge Activity: Limit activity as instructed Patient Instructions: Lumbar Radiculopathy (ED), Opioid Safety Activity Restrictions/Additional Instructions: No lifting greater than 10 pounds. No stooping or bending. Do not hold any objects out at arms length. Avoid stairs. Follow-up with pain clinic as previously scheduled. Case management will call with an appointment for an MRI of the lumbar spine. Coding Level of Care Code ED Warp Bleaching Vat Tender for Rhys Devlin
[2020-11-06] MEDS: ondansetron 2 mg/ML SDV 2 mL 4 MG IVP (16:40)
[2020-11-06] MEDS: orphenadrine 30 mg/mL Inj 2 mL 60 MG IVP (16:41)
[2020-11-06 16:42] VITALS: RESP 18
[2020-11-06] MEDS: morphine 4 mg/mL SDV 1 mL 6 MG IVP (16:42)
[2020-11-06 16:43] LABS: Basophils # 0.1 10^3/uL (0.0-0.1); Basophils % 1.1 %; Eosinophils # 0.5 10^3/uL (0.0-0.8); Eosinophils % 7.1 %; Hematocrit 35.4 % (37.0-47.0); Hemoglobin 12.1 g/dL (11.5-15.3); Lymphocytes # 2.2 10^3/uL (0.8-4.8); Lymphocytes % 32.9 %; Mean Corpuscular HGB Conc 34.2 g/dL (30.0-36.0); Mean Corpuscular Hemoglobin 30.6 pg (28.0-34.0); Mean Corpuscular Volume 89.6 fL (81-99); Mean Platelet Volume 9.6 fL (7.4-10.4); Monocytes # 0.9 10^3/uL (0.2-0.9); Neutrophils # 2.98 10^3/uL (1.8-7.7); Neutrophils % 44.6 %; Nucleated Red Blood Cells % 0 %; Platelet Count 239 10^3/cmm (130-400); Red Blood Count 3.95 10^6/uL (4.1-5.3); Red Cell Distribution Width 12.5 % (12.1-15.1); White Blood Count 6.7 10^3/uL (4.0-10.0)
[2020-11-06] MEDS: sodium chloride 0.9% 1,000 ML 999 ML IV (16:45)
[2020-11-06] MEDS: ketorolac 30 mg/mL INJ IVP (16:45)
--- NOTE | 2020-11-06 16:52 | PC.PHAR ---
pt brought in medication list-pts verified medications-pts states the pt takes levothyroxine 25mcg-medication not on med list pt brought in and [facility] states they havent filled any thyroid medications for the pt
[2020-11-06 16:58] LABS: Anion Gap 14.7 (5-19); Blood Urea Nitrogen 6 mg/dL (8-23); Calcium 9.4 mg/dL (8.5-10.5); Carbon Dioxide 25 mmol/L (22-29); Chloride 94 mmol/L (98-107); Glomerular Filtration Rate 162.3 mL/min (90-130); Glucose 95 mg/dL (65-115); Osmolality Calculated 265 mOsm/kg (285-295); Potassium 4.7 mmol/L (3.5-5.1); Sodium 129 mmol/L (136-145)
[2020-11-06 17:44] VITALS: BP 142/95; PULSE 76; RESP 18; O2SAT 96
[2020-11-06 18:05] VITALS: BP 139/94; PULSE 77; RESP 18; O2SAT 96
[2020-11-06 18:47] LABS: Specific Gravity, Urine 1.005 (1.005-1.030); Urine Appearance SL Hazy (CLEAR); Urine Color Yellow (Yellow); pH Urine 7 (5-7)
[2020-11-06 18:48] LABS: Add Urine Microscopic? YES; Bilirubin Urine Neg (Negative); Blood Urine 2+ (Negative); Glucose Urine UA Norm (Normal); Ketones Urine Negative (Negative); Leukocyte Esterase Urine 2+ (Negative); Nitrate Urine Positive (Negative); Protein Urine Neg (Negative); Urobilinogen Urine Norm (Negative)
[2020-11-06 18:49] LABS: Add Urine Culture? Yes; Bacteria Urine 3+ /hpf; RBC Urine 0-4 /hpf (0-2); Squamous Epithelial Cell Urine 0-4 /hpf (0-5); WBC Urine >100 /hpf (0-5)
== END 2020-11-06 18:25 | disposition home or self-care (01) ==
PROVIDERS: Emergency Provider Family Medicine; PCP Nurse Practitioner Family
DX: M54.16 Radiculopathy, lumbar region (principal); S39.012A Strain of muscle, fascia and tendon of lower back, initial encounter; F17.210 Nicotine dependence, cigarettes, uncomplicated; W19.XXXA Unspecified fall, initial encounter
CPT/HCPCS: 72131; 72192; 80048; 81001; 85025; 87077; 87086; 87186; 96361; 96374; 96375; 99283; J1885; J2270; J2360; J2405; J2930; J7030

== ENCOUNTER 2020-11-22 13:25 | Outpatient (CLI) | payer MEDICARE, SELFPAY ==
--- NOTE | 2020-11-22 13:35 | XR_ITS ---
WS: [id number] Left ankle, 3 views, 11/22/2020 Clinical Data: LEFT ANKLE PAIN FALL Comparison: Left ankle, 02/24/2012. Findings: There is a medial tilt of the left foot with a lateral movement of the articular surface of the talus . There is a triangular calcification between the talus and the tip of the lateral malleolus. There i s soft tissue swelling over the medial and lateral malleolus. No fractures are seen. There is a large Achilles spur and a smaller plantar spur. There is osteoarthritic change of the tarsal bones. XR/XR ankle LT min 3V* [id number] Impression: 1. Lateral tilt of the talus with the medial tilt of the left foot. 2. Soft tissue swelling over medial malleolus and to a lesser extent the latera l malleolus. 3. Accessory ossicle between the tip of the distal fibula and the talus.
== END 2020-11-22 13:26 | disposition home or self-care (01) ==
PROVIDERS: PCP Nurse Practitioner Family; Visit Provider Nurse Practitioner Family
DX: M25.572 Pain in left ankle and joints of left foot (principal); W19.XXXA Unspecified fall, initial encounter; M79.89 Other specified soft tissue disorders
CPT/HCPCS: 73610

== ENCOUNTER → 2020-12-13 14:22 | Outpatient (BNVA) | payer MEDICARE, SELFPAY | PROVIDERS: PCP Nurse Practitioner Family; Referring Provider Nurse Practitioner Family; Visit Provider Orthopaedic Surgery | DX: M47.896 Other spondylosis, lumbar region (principal); M54.9 Dorsalgia, unspecified; M41.9 Scoliosis, unspecified | CPT/HCPCS: 72110 ==

== ENCOUNTER → 2021-01-10 14:39 | Outpatient (BNVA) | payer MEDICARE, SELFPAY | PROVIDERS: PCP Nurse Practitioner Family; Visit Provider Podiatrist Foot & Ankle Surgery | DX: M79.672 Pain in left foot (principal); M79.671 Pain in right foot; M19.072 Primary osteoarthritis, left ankle and foot; M19.071 Primary osteoarthritis, right ankle and foot; M79.89 Other specified soft tissue disorders | CPT/HCPCS: 73610; 73630 ==

== ENCOUNTER 2021-04-03 13:45 | Outpatient (CLI) | payer MEDICARE, SELFPAY ==
--- NOTE | 2021-04-03 13:49 | MM_ITS ---
WS: [id number] BILATERAL DIGITAL SCREENING MAMMOGRAPHY WITH CAD CLINICAL INFORMATION: SCREENING HISTORY: Screening mammogram. No current complaints. COMPARISON: January 23, 2012 TECHNIQUE: Bilateral CC and MLO views. FINDINGS: The breasts are composed of heterogeneous fibroglandular density tissue, which can limit the detectio n of small underlying mass lesions. A few tiny punctate calcifications. No suspicious mass, asymmetry , calcifications, or architectural distortion. No evidence of malignancy. MM/[place] [id number] IMPRESSION: BI-RADS: 2-Benign FOLLOW UP: 1 Year Follow-up Recommend return to annual screening mammography.
== END 2021-04-03 13:46 | disposition home or self-care (01) ==
LOC: RADSHAW 13:46
PROVIDERS: PCP Nurse Practitioner Family; Visit Provider Nurse Practitioner Family
DX: Z12.31 Encounter for screening mammogram for malignant neoplasm of breast (principal)
CPT/HCPCS: 77067

== ENCOUNTER 2021-09-09 14:09 | Outpatient (CLI) | payer MEDICARE, SELFPAY ==
--- NOTE | 2021-09-09 14:17 | XR_ITS ---
WS: [id number] Lumbar spine, 3 views, 09/09/2021 Clinical Data: BACK PAIN/SCIATICA Comparison: Lumbar spine, 12/13/2020. Findings: No compression fractures or subluxation is seen. There is a levoscoliosis. There is degenerative disc narrowing at all levels along with minimal osteoarthritis. The transverse processes and SI joints ar e normal. There is a large amount of fecal material throughout the colon. XR/XR lumbar spine 2-3V* [id number] Impression: 1. Levo scoliosis of the lumbar spine. 2. Degenerative disc disease and osteoarthritis at all lumbar levels.
== END 2021-09-09 14:10 | disposition home or self-care (01) ==
PROVIDERS: PCP Nurse Practitioner Family; Visit Provider Nurse Practitioner Family
DX: M54.30 Sciatica, unspecified side (principal); M41.86 Other forms of scoliosis, lumbar region; M51.36 Other intervertebral disc degeneration, lumbar region; M47.816 Spondylosis without myelopathy or radiculopathy, lumbar region
CPT/HCPCS: 72100

== ENCOUNTER 2021-11-09 14:24 | Outpatient (CLI) | payer MEDICARE, SELFPAY ==
--- NOTE | 2021-11-09 14:32 | MR_ITS ---
WS: [id number] MRI LUMBAR SPINE NONCONTRAST TECHNIQUE: Sagittal T1, T2 and STIR imaging. Axial T1 and T2 imaging. CLINICAL INFORMATION: COMPARISON: CT November 06, 2020 FINDINGS: Lumbar scoliosis convex LEFT. No acute compression. No high-grade central canal stenosis. Disc bulgin g worse at L3-L4. L1-L2: Mild annular bulging. Mild facet arthropathy. Spinal canal and foramen are patent. L2-L3: Mild annular bulging. Slight effacement of ventral thecal sac. Mild facet arthropathy. Narrowi ng of the RIGHT subarticular recess. Spinal canal and foramen are patent L3-L4: Mild annular bulging. Narrowing of the subarticular recess bilaterally. Mild facet arthropathy . Moderate facet arthropathy. Small bilateral foraminal protrusions with mild to moderate bilateral f oraminal narrowing LEFT greater than RIGHT. L4-L5: Mild annular bulging. Narrowing of the LEFT subarticular recess. Slight impingement traversing LEFT L5 nerve root. Mild RIGHT foraminal narrowing. Mild facet arthropathy. L5-S1: No significant disc bulging. Mild facet arthropathy. Spinal canal and foramen are patent. Visualized pelvic bony structures: Normal. Paravertebral soft tissues: Normal. MR/MR lumbar spine wo con* [id number] IMPRESSION: 1. Lumbar scoliosis convex LEFT. No acute compression. No high-grade central c anal stenosis. 2. Mild central canal stenosis L3-L4 with mild annular bulging. Impingement on the traversing L4 nerve roots bilaterally LEFT greater than RIGHT. 3. Mild to moderate LEFT L3-L4 foraminal narrowing with small LEFT foraminal p rotrusion and impingement on the exiting LEFT L3 nerve root. 4. Slight narrowing of the RIGHT L2-L3 subarticular recess. 5. Annular bulging L4-L5 with slight impingement traversing LEFT L5 nerve root . 6. Mild to moderate facet arthropathy L3-L5. 7. Small central disc protrusion on the side seam machine operator imaging at C5-C6 with mild centr al canal stenosis. This can be followed up with cervical spine MRI.
== END 2021-11-09 14:25 | disposition home or self-care (01) ==
LOC: RAD 14:29
PROVIDERS: PCP Nurse Practitioner Family; Visit Provider Orthopaedic Surgery
DX: M41.86 Other forms of scoliosis, lumbar region (principal); M48.061 Spinal stenosis, lumbar region without neurogenic claudication; M51.26 Other intervertebral disc displacement, lumbar region; M47.816 Spondylosis without myelopathy or radiculopathy, lumbar region; M50.222 Other cervical disc displacement at C5-C6 level
CPT/HCPCS: 72148

== ENCOUNTER → 2021-12-11 11:48 | Day surgery (SDC) | payer MEDICARE, SELFPAY | PROVIDERS: PCP Nurse Practitioner Family; Visit Provider Orthopaedic Surgery | DX: Z01.818 Encounter for other preprocedural examination (principal); M48.062 Spinal stenosis, lumbar region with neurogenic claudication | CPT/HCPCS: 93005 ==

== ENCOUNTER → 2021-12-11 13:01 | Outpatient (BNVA) | payer MEDICARE, SELFPAY | PROVIDERS: PCP Nurse Practitioner Family; Visit Provider Orthopaedic Surgery | DX: Z01.818 Encounter for other preprocedural examination (principal); Z20.822 Contact with and (suspected) exposure to COVID-19 | CPT/HCPCS: 87635 ==

== ENCOUNTER 2021-12-18 06:59 | Day surgery (SDC) | payer MEDICARE, SELFPAY ==
[2021-12-11 10:57] VITALS: BMI 36.3
--- NOTE | 2021-12-11 11:48 | ECG_ITS ---
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 Measurements Intervals [place] Rate: 81 P: 49 WA: 155 QRS: 15 QRSD: 99 T: 12 QT: 378 QTc: 441 Interpretive Statements SINUS RHYTHM POSSIBLE LEFT ATRIAL ENLARGEMENT [-0.1mV P-WAVE IN V1/V2] INFERIOR MYOCARDIAL INFARCTION , PROBABLY OLD [40+ ms Q WAVE AND/OR ST/T ABNORMALITY IN II/aVF] Compared to ECG 07/30/2018 11:49:58 Myocardial infarct finding now present Sinus arrhythmia no longer present Electronically Signed On 12-11-2021 17:17:24 CDT by Jeff Motley M.D. [id number]
--- NOTE | 2021-12-11 16:35 | P.ANESASSM_ITS ---
Pre-Anesthetic Assessment Height/Weight: Height 1.68 m Weight 102.058 kg Preop Diagnosis: Lumbar stenosis w/ neurogenic claudication Operation Date: 12/18/21 10:45 Proposed Procedures p Lumbar Spine Decompression L3/4 95735/spinal stenosis,lumbar region with darrell terry M48.062(Not Applicable) - Thomas Villalobos DO Familial anesthetic complications: Had sister who had dystonic reaction from nitrous oxide, however patient has had multiple anesthetics w/o difficulty Was Beta Nick taken within 24 hours: N/A Was Clonidine taken within 24 hours: N/A Social Tobacco and No alcohol Exam alert, oriented x 3 and regular rate & rhythm B/L wheezing Airway Submandibular: within normal limits Cervical ROM: within normal limits Mallampati: Class II Comments: Comments: Poor dentition Pulmonary Chronic Obstructive Pulmonary Disease CV/HEM Denies cardiac history None reported Chronic hyponatremia Hepatic None reported GI Gastroesophageal Reflux Disease Metabolic None reported Musc/skel None reported Neuropsych Seizure Anesthetic Plan Anesthesia: Anesthesia Evaluation Other: We discussed risk and benefits of general anesthesia including PONV, sore throat (sometimes severe), corneal abrasion, positioning and peripheral nerve injuries, life threatening allergic reaction, post operative ICU admission requiring prolonged intubation, stroke, heart attack, , and rare incidences of recall. Patient consents to proceed with general anesthesia. Risk of > 500 ml blood loss (7ml/kg in children): No Medications/Allergies Home Medications Medication Instructions Recorded Confirmed Last Taken Type Vitamin C 1 tab PO DAILY@12 03/02/20 12/11/21 11/05/20 History Vitamin D3 1 tab PO DAILY@12 03/02/20 12/11/21 11/05/20 History clonazepam 1 mg tablet See Rx Instructions .ROUTE 03/02/20 12/11/21 03/01/20 History .COMPLEX PRN divalproex 500 mg tablet,delayed 1,000 mg PO QPM 03/02/20 12/11/21 11/05/20 History release hydrocodone 10 mg-acetaminophen 1 - 2 tab PO Q4H PRN MDD 6 tabs 03/02/20 12/11/21 11/06/20 12:00 History 325 mg tablet per day mirtazapine 30 mg tablet 30 mg PO QPM 03/02/20 12/11/21 11/05/20 History olanzapine 10 mg tablet 10 mg PO QPM 03/02/20 12/11/21 11/05/20 History olmesartan 40 mg tablet 40 mg PO QAM 03/02/20 12/11/21 11/06/20 History oxybutynin chloride 15 mg 15 mg PO QAM 03/02/20 12/11/21 11/06/20 History tablet,extended release 24 hr phenytoin sodium extended 100 mg 100 mg PO TID 03/02/20 12/11/21 11/06/20 06:00 History capsule potassium chloride 10 mEq 10 meq PO QAM 03/02/20 12/11/21 11/06/20 History tablet,extended release sodium chloride-potassium chloride 1 tab PO BID 03/02/20 12/11/21 11/06/20 History 287 mg-180 mg-15 mg tablet (Thermotabs) trazodone 100 mg tablet 100 - 200 mg PO BEDTIME PRN 03/02/20 12/11/21 11/05/20 History venlafaxine 50 mg tablet 50 mg PO BID 03/02/20 12/11/21 11/06/20 History vitamin E 1 cap PO DAILY@12 03/02/20 12/11/21 11/05/20 History cetirizine 10 mg tablet (Zyrtec) 10 mg PO DAILY 11/06/20 12/11/21 Unknown History divalproex 500 mg tablet,extended 500 mg PO QAM 11/06/20 12/11/21 11/06/20 History release 24 hr levothyroxine 25 mcg tablet See Rx Instructions .ROUTE .COMPLEX 11/06/20 12/11/21 Unknown History prednisone 20 mg tablet 20 mg PO DAILY #15 tab 12/13/20 12/11/21 Unknown Rx Non Articulating AFO #1 ea 01/10/21 11/19/21 Unknown Rx chlorzoxazone 500 mg tablet 500 mg PO TID 09/26/21 12/11/21 Unknown History gabapentin 300 mg capsule 300 mg PO TID 09/26/21 12/11/21 Unknown History meloxicam 15 mg tablet 15 mg PO DAILY 09/26/21 12/11/21 Unknown History Allergies Allergy/AdvReac Type Severity Reaction Status Date / Time ceftriaxone [From Rocephin] Allergy ALGY-Rash Verified 11/19/21 13:19 cephalexin Allergy Unknown Verified 11/19/21 13:19 ciprofloxacin Allergy Unknown Verified 11/19/21 13:19 Penicillins Allergy ALGY-Rash Verified 11/19/21 13:19 tramadol Allergy Unknown Verified 11/19/21 13:19 Betalactams Allergy hives Uncoded 11/19/21 13:19 [facility] Anesthesia Social History Smoking and tobacco status: current every day smoker Data Anesthesia Cardiac Studies: No Data to Display
[2021-12-18] VITALS (14 sets, daily range): BP systolic 112–171; BP diastolic 44–85; PULSE 84–115; RESP 16–21; TEMP 36.4–36.8; O2SAT 92–99
--- NOTE | 2021-12-18 | XR_ITS ---
WS: [id number] XR lumbar spine 1V [id number] REASON FOR EXAM: L3-L4 Decompression FINDINGS: Localization in the lumbar spine at the left L3-L4 level. XR/XR lumbar spine 1V [id number] IMPRESSION: Intraoperative localization of the lumbar spine.
--- NOTE | 2021-12-18 | SCC_ITS ---
Procedure done: 1. L3/4 laminectomy with partial facetectomies 28.8 seconds of fluoroscopic guidance, for a cumulative dose of 8.80 mGy, was provided to Dr. Villalobos by the radiology department. C-arm images of the lumbar spine were saved for the patient's permanent record. [facility]
[2021-12-18] MEDS: sodium chloride 0.9% 1,000 ML 30 ML IV (07:40)
[2021-12-18 08:25] LABS: Blood Urea Nitrogen 19 mg/dL (8-23); Calcium 9.8 mg/dL (8.5-10.5); Carbon Dioxide 27 mmol/L (22-29); Chloride 103 mmol/L (98-107); Glomerular Filtration Rate 84.8 mL/min (90-130); Glucose 107 mg/dL (65-115); Osmolality Calculated 291 mOsm/kg (285-295); Sodium 139 mmol/L (136-145)
[2021-12-18 08:26] LABS: Anion Gap 13.2 (5-19); Potassium 4.2 mmol/L (3.5-5.1)
--- NOTE | 2021-12-18 08:33 | W.PM.OPSUD ---
Surgery/Procedure H&P Update DATE OF PROCEDURE: December 18, 2021 DATE H&P PERFORMED: 11/19/21 H&P UPDATE INFORMATION: I have reviewed H&P completed within last 30 days, I have examined patient prior to procedure and No changes to prior documentation PREOP DIAGNOSIS: Lummbar stenosis w/Neurogenic Claudication PLANNED PROCEDURE: Operation Date: 12/18/21 08:30 Proposed Procedures p Lumbar Spine Decompression L3/4 48208/spinal stenosis,lumbar region with darrell terry M48.062(Not Applicable) - Thomas Villalobos DO
--- NOTE | 2021-12-18 08:35 | P.ANESUD_ITS ---
Pre-Anesthetic Update Pre-Anesthetic Assessment: Date of Surgery/Procedure: 12/18/21 Preop Sabina gnosis: Lummbar stenosis w/Neurogenic Claudication Proposed Procedure: Operation Date: 12/18/21 08:30 Proposed Procedures p Lumbar Spine Decompression L3/4 09274/spinal stenosis,lumbar region with darrell terry M48.062(Not Applicable) - Thomas Villalobos, DO Any changes to Pre-Anesthetic Assessment?: No Last Intake: Intake Last Liquid Date 12/17/21 Last Liquid Time 18:00 Last Solid Date 12/17/21 Last Solid Time 18:00 Labs Last 48hrs: BMP 12/18/21 07:38 Sodium 139 Potassium 4.2 Chloride 103 Carbon Dioxide 27 BUN 19 Creatinine 0.7 Glucose 107 Calcium 9.8 Vitals: Temperature 97.8 F 12/18/21 07:44 Temperature Source Temporal Artery S can 12/18/21 07:44 Pulse Rate 84 12/18/21 07:44 Pulse Rhythm 12/18/21 07:44 Pulse Strength 3+ Normal 12/18/21 07:44 Respiratory Rate 18 12/18/21 07:44 Blood Pressure 171/85 12/18/21 07:44 Blood Pressure Sushila n 113 12/18/21 07:44 Pulse Oximetry 96 12/18/21 07:44 Oxygen Delivery Me thod 12/18/21 07:44 Exam: Pre-Anes Outpt Exam: alert, oriented x 3, clear to auscultation bilaterally and regular rate & rhythm Cardiac Studies: No Data to Display
[2021-12-18] MEDS: fentaNYL 50 mcg/mL INJ 2mL IVP ×2 (08:38→10:41)
[2021-12-18] MEDS: clindamycin 900 MG/50 ML PREMIX 100 MG IV (08:56)
--- NOTE | 2021-12-18 10:23 | P.OP_ITS ---
Operative Report Date of procedure: December 18, 2021 Pre-op diagnosis: Preop Diagnosis Lummbar stenosis w/Neurogenic Claudication Post-op diagnosis: same Procedure done: 1. L3/4 laminectomy with partial facetectomies Surgeon: Thomas Villalobos Assistant Passenger Locomotive Engineer: Ronnie Quinones Assistant Passenger Locomotive Engineer: The surgical services manager, Ronnie Quinones, TERRY was needed for his expertise under the microscope. He was important and necessary throughout the procedure to complete in a safe and timely manner. He assisted with patient positioning prepping and draping tissue retraction suctioning of the operative field protection of the dural sac and tissue closure Estimated blood loss (mL): 15 Procedure: L3/4 laminectomy with partial facetectomy Patient is brought to the operative suite. After undergoing anesthesia they are placed in the prone position. All areas of impingement are well padded. Patient is then prepped and draped in the normal sterile fashion. A skin incision is made over the L3/4 level. This is confirmed under c-arm guidance. A series of dilators are passed and the tubular retractor is docked on the L3 lamina. A bovie is used to clear the soft tissue off the lamina and t he L 3/4 facet joint. A high speed shad is then used to perform the laminectomy and take down the medial aspect of the L 3/4 facet joint. A kerrison rongeure was then used to take down the remaining lamina and smooth the edge of the laminectomy up to the point where the ligamentum flavum attaches. Attention was then brought to the medial aspect of the facet joint. The remaining medial aspect of the superior and inferior aspect of the facet joint were taken down with the kerrison from the pedicle of L3 to L 4. The facet joint had significant hypertrophy. Attention was then brought to the Ligamentum Flavum. The ligament was taken down from the lamina of L3 to L4 and out medially to the remaining facet joint. The ligament was thick. The dura was then exposed. The dura was in good repa ir. The L3 nerve was then traced with a curette out the L3/4 foramen and found to be adequately decompressed. The L4 nerve was traced with a curette around the L4 pedicle. The lateral recess was opened with a kerrison helping to further decompress the L4 nerve. Wound is then irrigated copiously with saline and surgiflo is used to stop any bleeding. The tubular retractor is removed and the wound is closed with vicryl and monocryl suture. Glue is then used to protect the wound. A sterile dressing is then placed. Patient was then placed in the supine position and transferred to the PACU in stable condition.
[2021-12-18] MEDS: ondansetron 2 mg/ML SDV 2 mL 4 MG IVP (10:52)
[2021-12-18] MEDS: HYDROcodone-acetaminophen 10-325 mg Tablet 1 TAB PO (11:23)
--- NOTE | 2021-12-18 13:32 | ANE.PACU2 ---
Inpatient post-anesthesia follow up: Airway intact: Yes Vital signs: Temperature 98.2 F Pulse Rate 91 Respiratory Rate 16 Blood Pressure 112/60 Pulse Oximetry 92 Oxygen Delivery Me thod Room Air Oxygen Flow Rate 6 Fraction of Inspir ed Oxygen Hydration adequate: Yes Nausea and vomiting: No Pain level: 2 Mental status: Baseline
== END 2021-12-18 12:07 | disposition home or self-care (01) ==
PROVIDERS: PCP Nurse Practitioner Family; Visit Provider Orthopaedic Surgery
PROC: (CPT 63005; principal; 2021-12-18 08:30)
DX: M48.062 Spinal stenosis, lumbar region with neurogenic claudication (principal); J44.9 Chronic obstructive pulmonary disease, unspecified; K21.9 Gastro-esophageal reflux disease without esophagitis; Z79.52 Long term (current) use of systemic steroids; F17.210 Nicotine dependence, cigarettes, uncomplicated
CPT/HCPCS: 63047; 36415; 72020; 76000; 80048; J1100; J2250; J2405; J2704; J2710; J3010; J3490; J7030

== ENCOUNTER → 2022-01-02 10:40 | Outpatient (BNVA) | payer MEDICARE, SELFPAY | PROVIDERS: PCP Nurse Practitioner Family; Visit Provider Orthopaedic Surgery | DX: Z47.89 Encounter for other orthopedic aftercare (principal); Z98.890 Other specified postprocedural states | CPT/HCPCS: 99024 ==

== ENCOUNTER → 2022-01-30 10:36 | Outpatient (BNVA) | payer MEDICARE, SELFPAY | PROVIDERS: PCP Nurse Practitioner Family; Visit Provider Orthopaedic Surgery | DX: Z47.89 Encounter for other orthopedic aftercare (principal); Z98.890 Other specified postprocedural states | CPT/HCPCS: 99024 ==

== ENCOUNTER → 2022-03-13 13:18 | Outpatient (BNVA) | payer MEDICARE, SELFPAY | PROVIDERS: PCP Nurse Practitioner Family; Visit Provider Orthopaedic Surgery | DX: Z47.89 Encounter for other orthopedic aftercare (principal); Z98.890 Other specified postprocedural states | CPT/HCPCS: 99024 ==

== ENCOUNTER 2022-09-03 14:00 | Outpatient (CLI) | payer MEDICARE, SELFPAY ==
--- NOTE | 2022-09-03 14:57 | XR_ITS ---
WS: [email or web address] Exam: XR acute abdomen series [id number] Date/Time of Exam: 09/03/2022 3:03 PM Reason For Exam: LOWER ABDOMINAL PAIN PA chest. No priors. The lungs are clear and fully expanded. Normal cardiomediastinal silhouette. No pleural effusions. Eventration of the right diaphragm. Dextroscoliosis of the T-spine. Flat and erect abdomen. No bowel obstruction or free air. No sign of organ enlargement. Large amount retained stool in the colon. Moderate levoscoliosis at the thoracolumbar junction. XR/XR acute abdomen series [id number] IMPRESSION: 1. No acute cardiopulmonary finding. 2. Constipation. No acute abdominal process.
== END 2022-09-03 14:01 | disposition home or self-care (01) ==
PROVIDERS: PCP Nurse Practitioner Family; Visit Provider Nurse Practitioner Family
DX: R10.9 Unspecified abdominal pain (principal); K59.00 Constipation, unspecified
CPT/HCPCS: 74022

== ENCOUNTER 2022-09-18 14:27 | Outpatient (CLI) | payer MEDICARE, SELFPAY ==
--- NOTE | 2022-09-18 14:47 | XR_ITS ---
WS: [email or web address] Left foot, 2 views, 09/18/2022 Clinical Data: LEFT FOOT PAIN Comparison: None. Findings: No fractures or dislocations are seen. No bone destruction or erosion is noted. The joint spaces are normal. There is soft tissue swelling over the dorsum of the foot. There is a plantar spur and an Achilles sp ur. There is osteoarthritis of the left ankle joint. XR/XR foot LT 2V [id number] Impression: Negative left foot.
--- NOTE | 2022-09-18 14:47 | XR_ITS ---
WS: [id number] Left ankle, 3 views, 09/18/2022 Clinical Data: ACUTE LEFT ANKLE PAIN Comparison: Left ankle, 01/10/2021 Findings: There is medial displacement of the talar articular surface relative to the tibial articular surface. There is osteoarthritic change of the distal tibia and the talus. The old fracture of the distal lef t fibula is difficult to see. There is soft tissue swelling surrounding the ankle. No new fractures are seen. XR/XR ankle LT min 3V* [id number] Impression: Osteoarthritis of the left ankle with medial displacement of the talus relative to the left tibia.
== END 2022-09-18 14:28 | disposition home or self-care (01) ==
PROVIDERS: PCP Nurse Practitioner Family; Visit Provider Nurse Practitioner Family
DX: M19.072 Primary osteoarthritis, left ankle and foot (principal)
CPT/HCPCS: 73610; 73620

== ENCOUNTER → 2022-10-21 14:58 | Outpatient (BNVA) | payer MEDICARE, SELFPAY | PROVIDERS: PCP Nurse Practitioner Family; Visit Provider Podiatrist Foot & Ankle Surgery | DX: I73.9 Peripheral vascular disease, unspecified (principal); M25.372 Other instability, left ankle; M21.171 Varus deformity, not elsewhere classified, right ankle; M21.172 Varus deformity, not elsewhere classified, left ankle; M19.072 Primary osteoarthritis, left ankle and foot; M20.42 Other hammer toe(s) (acquired), left foot; M20.41 Other hammer toe(s) (acquired), right foot | CPT/HCPCS: 99213 ==

== ENCOUNTER → 2023-05-21 14:24 | Outpatient (BNVA) | payer MEDICARE, SELFPAY | PROVIDERS: PCP Nurse Practitioner Family; Visit Provider Orthopaedic Surgery | DX: M48.062 Spinal stenosis, lumbar region with neurogenic claudication (principal) | CPT/HCPCS: 99214 ==

== ENCOUNTER 2023-06-17 14:54 | Outpatient (CLI) | payer MEDICARE, SELFPAY ==
--- NOTE | 2023-06-17 15:15 | MR_ITS ---
WS: [id number] MRI LUMBAR SPINE NONCONTRAST HISTORY: Lumbar pain COMPARISON: Prior MRI 11/09/2021 TECHNIQUE: Sagittal and axial multisequence imaging is submitted. Focal reversal the normal cervical lordosis centered at C5-6. There is a small disc or osteophyte con tacting the ventral cervical cord. There are several hemangiomas within the thoracic spine. Moderate curvature lumbar spine convex to the LEFT. Asymmetric disc space narrowing and desiccation. No acute edema within the lumbar vertebral bodies. T here is increased marrow signal consistent with edema in the posterior elements of L4 and L5 on the L EFT. Conus terminates normally at L1-2 disc level. T12-L1: Mild asymmetric disc bulging to the RIGHT. No stenosis L1-L2: Mild annular disc bulging, mild facet arthritis. No significant stenosis or interval change. L2-L3: Moderate annular disc bulging with effacement of the ventral thecal sac. Mild bilateral facet arthritis and ligamentum flavum arthritis. Mild bilateral foraminal narrowing. No change. L3-L4: Mild annular disc bulging with narrowing of the subarticular recesses bilaterally. Moderate bi lateral facet joint arthritis and ligamentum flavum arthritis. Small bilateral foraminal disc protrus ions are reidentified. No significant progression since the prior study. There is moderate central an d bilateral foraminal stenosis with encroachment upon the subarticular recesses. L4-L5: Mild diffuse annular disc bulging, osteophytic ridging and moderate facet arthritis. Mild encr oachment upon the traversing LEFT L5 nerve root. Mild RIGHT and moderate LEFT foraminal stenosis. Sim ilar to the prior study. Mild central stenosis. L5-S1: Moderate bilateral facet arthritis, LEFT greater than RIGHT. No stenosis. IMPRESSION: 1. Moderate LEFT convex curvature lumbar spine unchanged. 2. No high-grade central stenosis. 3. New marrow edema in the posterior elements of L4 and L5 on the LEFT. 4. L3-4: Moderate central, bilateral foraminal stenosis and subarticular recess stenosis. As noted on the prior study mild impingement upon the exiting LEFT L3 nerve root. 5. L4-5: Mild central and RIGHT foraminal stenosis with moderate LEFT foraminal stenosis. Mild encroa chment upon the traversing LEFT L5 nerve root. 6. No compression fractures.
== END 2023-06-17 14:55 | disposition home or self-care (01) ==
PROVIDERS: PCP Nurse Practitioner Family; Visit Provider Orthopaedic Surgery
DX: M48.062 Spinal stenosis, lumbar region with neurogenic claudication (principal)
CPT/HCPCS: 72148

== ENCOUNTER → 2023-07-23 08:54 | Outpatient (BNVA) | payer MEDICARE, SELFPAY | PROVIDERS: PCP Nurse Practitioner Family; Visit Provider Orthopaedic Surgery | DX: M48.062 Spinal stenosis, lumbar region with neurogenic claudication (principal) | CPT/HCPCS: 72100; 99214 ==

== ENCOUNTER → 2023-11-05 11:12 | Outpatient (BNVA) | payer MEDICARE, SELFPAY | PROVIDERS: PCP Nurse Practitioner Family; Visit Provider Podiatrist Foot & Ankle Surgery | DX: M25.372 Other instability, left ankle; M19.079 Primary osteoarthritis, unspecified ankle and foot; I73.9 Peripheral vascular disease, unspecified; M21.171 Varus deformity, not elsewhere classified, right ankle; M21.172 Varus deformity, not elsewhere classified, left ankle; M20.41 Other hammer toe(s) (acquired), right foot; M20.42 Other hammer toe(s) (acquired), left foot | CPT/HCPCS: 99213 ==

== ENCOUNTER 2023-11-25 14:15 | Outpatient (CLI) | payer MEDICARE, SELFPAY ==
--- NOTE | 2023-11-25 14:21 | XRR_ITS ---
PROCEDURE INFORMATION: Exam: XR Chest Exam date and time: 11/25/2023 2:35 PM Age: 63 years old Clinical indication: Condition or disease; Lung condition and disease; Copd; With exacerbation; Additional info: Copd w/acute exacerbation TECHNIQUE: Imaging protocol: Radiologic exam of the chest. Views: 2 views. COMPARISON: CR XR chest 2V* [id number] 10/11/2020 3:11 PM FINDINGS: Lungs: Unremarkable. No consolidation. Pleural spaces: Unremarkable. No pleural effusion. No pneumothorax. Heart/Mediastinum: Unremarkable. No cardiomegaly. Bones/joints: Mild dextroscoliosis of the thoracic spine and moderate levoscoliosis thoracolumbar region, as noted with prior exam 09/03/2022. Other findings: No significant change with prior exam. XR/XR chest 2V* [id number] IMPRESSION: Stable chest with previous exam, without acute cardiopulmonary abnormality.
== END 2023-11-25 14:16 | disposition home or self-care (01) ==
LOC: RAD 14:18
PROVIDERS: PCP Nurse Practitioner Family; Visit Provider Nurse Practitioner Family
DX: J44.1 Chronic obstructive pulmonary disease with (acute) exacerbation (principal)
CPT/HCPCS: 71046

== ENCOUNTER 2024-01-22 13:37 | Outpatient (CLI) | payer MEDICARE, SELFPAY ==
--- NOTE | 2024-01-22 13:44 | XR_ITS ---
WS: [email or web address] Left leg including the tibia and fibula, AP and lateral views, 01/22/2024 Clinical Data: LEG PAIN, LEFT Comparison: Left knee, 06/20/2016 Findings: No fractures or dislocations are seen. The tibia and fibula are intact. There is osteoarthritis of th e left knee joint. There is osteoarthritis of the left ankle. XR/XR tibia fibula LT 2V [id number] Impression: Negative for left leg fracture.
--- NOTE | 2024-01-22 13:51 | XR_ITS ---
WS: [email or web address] Left ankle, AP and lateral views, 01/22/2024 Clinical Data: ANKLE PAIN Comparison: Left ankle, 09/18/2022 Findings: There is osteoarthritic change of the left ankle which remains the same. There is a medial tilt to th e talus unchanged. There are no new fractures or dislocations. There is a plantar spur and an Achilles spur. XR/XR ankle LT 2V [id number] Impression: No change in osteoarthritis of the left ankle with a medial tilt of the talus r elative to the left tibia.
--- NOTE | 2024-01-22 13:52 | XR_ITS ---
WS: [email or web address] Left foot, 2 views, 01/22/2024 Clinical Data: FOOT PAIN, LEFT Comparison: Left foot, 09/18/2022 Findings: No fractures or dislocations are seen. No bone destruction or erosion is noted. The joint spaces and soft tissues are normal. There is osteoarthritis of the left ankle. XR/XR foot LT 2V [id number] Impression: Negative left foot.
== END 2024-01-22 13:38 | disposition home or self-care (01) ==
LOC: RAD 13:40
PROVIDERS: PCP Nurse Practitioner Family; Visit Provider Nurse Practitioner Family
DX: M19.072 Primary osteoarthritis, left ankle and foot (principal); M17.12 Unilateral primary osteoarthritis, left knee; M77.32 Calcaneal spur, left foot
CPT/HCPCS: 73590; 73600; 73620

== ENCOUNTER 2024-07-01 15:53 | Outpatient (CLI) | payer MEDICARE, SELFPAY ==
--- NOTE | 2024-07-01 15:57 | XRR_ITS ---
PROCEDURE INFORMATION: Exam: XR Thoracic Spine Exam date and time: 07/01/2024 4:12 PM Age: 64 years old Clinical indication: Injury or trauma; Fall; Blunt trauma (contusions or hematomas); Additional info: Back pain TECHNIQUE: Imaging protocol: Radiologic exam of the thoracic spine. Views: 3 views. COMPARISON: CR XR chest 2V* [id number] 11/25/2023 2:35 PM FINDINGS: Bones/joints: Normal. No acute fracture. Normal alignment. Soft tissues: Unremarkable. XR/XR thoracic spine 3V* [id number] IMPRESSION: No acute findings.
== END 2024-07-01 15:54 | disposition home or self-care (01) ==
LOC: RAD 15:55
PROVIDERS: PCP Nurse Practitioner Family; Visit Provider Nurse Practitioner Family
DX: M48.062 Spinal stenosis, lumbar region with neurogenic claudication (principal); W19.XXXA Unspecified fall, initial encounter; M54.50 Low back pain, unspecified
CPT/HCPCS: 72072